=== PATIENT | male | born 1995 | race Hispanic/Latino ===

== ENCOUNTER 2020-10-10 00:25 | Emergency (ER) | payer OTHER ==
[~2020-10-10] VITALS: Ht 162.6 cm; Wt 79.4 kg
[2020-10-10] MEDS ORDERED: ACETAMINOPHEN 500 MG TABLET PO ONE (01:00)
[2020-10-10] MEDS ORDERED: IBUPROFEN 600 MG TABLET PO ONE (01:30)
[2020-10-10] MEDS ORDERED: AZITHROMYCIN 250 MG TABLET PO ONE (01:30)
[2020-10-10] MEDS ORDERED: AZIT250T9 PO (01:33)
[2020-10-10] MEDS ORDERED: ONDA4TAB10 PO (01:33)
[2020-10-10] MEDS ORDERED: CYCL10TA7 PO (01:33)
[2020-10-10 01:37] VITALS: BP 144/80
== END 2020-10-10 02:00 | disposition home or self-care (01) ==
LOC: EDH 00:41
DX: U07.1 COVID-19 (principal); J12.82 Pneumonia due to coronavirus disease 2019; Z88.0 Allergy status to penicillin; Z79.1 Long term (current) use of non-steroidal anti-inflammatories (NSAID); Z79.899 Other long term (current) drug therapy
CPT/HCPCS: 71045; 87635; 87804 ×2; 99284; C9803